=== PATIENT | female | born 1960 | race Caucasian/White ===

== ENCOUNTER 2016-10-31 14:44 | Emergency (ER) | payer OTHER ==
[~2016-10-31] VITALS: Ht 157.5 cm; Wt 72.6 kg
[~2016-10-31 14:44] MED LIST: ACTOS; ALTACE; FLEXERIL; LANTUS100 U/ML; LORATADINE; NEURONTIN; PRILOSEC; PROZAC; ULTRAM; ZOCOR
== END 2016-10-31 15:40 | disposition home or self-care (01) ==
LOC: CED 14:44 → CFTX 14:44 → CED 15:00 → CFTX 15:36 → CED 15:40
DX: N61.0 Mastitis without abscess (principal); E78.5 Hyperlipidemia, unspecified; I10 Essential (primary) hypertension; E11.9 Type 2 diabetes mellitus without complications; F17.210 Nicotine dependence, cigarettes, uncomplicated
CPT/HCPCS: 82947; 99283